=== PATIENT | female | born 2000 | race Caucasian/White ===

== ENCOUNTER 2021-12-24 22:55 | Emergency (ER) | payer OTHER ==
[~2021-12-24] VITALS: Ht 175.3 cm; Wt 106.6 kg
[2021-12-24] MEDS ORDERED: FUL-GLO OP ONE (23:02)
[2021-12-24] MEDS ORDERED: ERYTHROMYCIN ONE (23:09)
[2021-12-24 23:16] VITALS: BP 142/78
--- NOTE | 2021-12-24 23:24 | ER.PDOC ---
General Chief Complaint: Requesting Medical Care Stated Complaint: R EYE PAIN Time seen by MD: 22:58 Source: patient Exam Limitations: no limitations History of Present Illness Initial Comments This 21-year-old white female indicated that she had had eyelash extensions applied . She stated this morning around noon felt like possibly a piece of the glue from the eyelash extensions broke off and fell into her eye. She had this sudden foreign body sensation. She was seen in one of the freestanding ED's in [place] and they told her that they did not see anything they still gave her a prescription for an antibiotic ointment the name of which she does not know. However, by the time she got back home here to [place], the pharmacies were all closed and she could not fill the prescription. The eye was still irritating so she came in here. Fortunately we do have erythromycin ointment and I was able to instill some in her eye.He has no other acute complaints or injury. Timing/Duration: abrupt, other (About 11 to 12 hours) Associated Symptoms: pian, foreign body sensation Location: right eye Severity: moderate Context: foreign body (Possible piece of glue from her eyelash extension) Where: home Past Medical History Medical History: no pertinent history Surgical History: no surgical history Social History Smoking: non-smoker Alcohol Use: none Drug Use: none Constitutional: denies no symptoms reported, denies see HPI, denies chills, denies diaphoresis, denies fever, denies malaise, denies weakness, denies other Eyes: denies no symptoms reported; see HPI; denies blindness, denies blurred vision, denies drainage, denies decreased acuity; foreign body sensation; denies inflammation, denies pain, denies photophobia, denies previous injury, denies shadows, denies tunnel vision, denies vision change, denies contact lenses, denies glasses, denies other Ears: denies no symptoms reported, denies see HPI, denies dizziness, denies pain, denies tinnitus, denies bloody discharge, denies clear discharge, denies purulent discharge, denies serosanguinous discharge, denies previous injury, denies other Nose: denies no symptoms reported, denies see HPI, denies clots, denies congestion, denies epistaxis, denies pain, denies bloody discharge, denies clear discharge, denies purulent discharge, denies serosanguinous discharge, denies previous injury, denies other Mouth: denies no symptoms reported, denies see HPI, denies clots, denies loose teeth, denies pain, denies swelling, denies bloody discharge, denies clear discharge, denies purulent discharge, denies serosanguinous discharge, denies previous injury, denies other Throat: denies no symptoms reported, denies see HPI, denies pain, denies swelling, denies discharge, denies neck stiffness, denies aphonia, denies hoarse, denies muffled, denies painful swallowing, denies difficulty with fluids, denies previous injury, denies other Respiratory: denies no symptoms reported, denies see HPI, denies cough, denies orthopnea, denies shortness of breath, denies stridor, denies wheezing, denies other Cardiovascular: denies no symptoms reported, denies see HPI, denies chest pain, denies edema, denies palpitations, denies syncope, denies other Gastrointestinal: denies no symptoms reported, denies see HPI, denies abdominal pain, denies constipation, denies diarrhea, denies nausea, denies vomiting, denies other Musculoskeletal: denies no symptoms reported, denies see HPI, denies back pain, denies gout, denies joint pain, denies joint swelling, denies muscle pain, denies muscle stiffness, denies neck pain, denies other Skin: denies no symptoms reported, denies see HPI, denies change in color, denies change in hair/nails, denies dryness, denies lesions, denies lumps, denies rash, denies other Neurological: denies no symptoms reported, denies see HPI, denies anxiety, denies depressed, denies emotional problems, denies headache, denies numbness, denies paresthesia, denies pre-existing deficit, denies seizure, denies tingling , denies tremors, denies weakness, denies other Hematologic/Lymphatic: denies no symptoms reported, denies see HPI, denies anemia, denies blood clots, denies easy bleeding, denies easy bruising, denies swollen glands, denies other Immunological/Allergic: denies no symptoms reported, denies see HPI, denies food allergy, denies grass allergy, denies mold allergy, denies pollen allergy, denies HIV/AIDS, denies transplant All Other Systems: Reviewed and Negative Physical Exam General Appearance: alert, no distress Visual Acuity: no globe trauma Eyelid: nml inspection, (R) erythema, everted for exam (R) (No foreign body f ound in the anywhere.) Conjunctiva/Sclera: (R) injected (No fluorescein staining uptake anywhere) Corneas: nml inspection, exam w/flurescein (R) EOM's: intact, no nystagmus Pupils: PERRL, nml accommodation Head/ENT: nml inspection, pharynx nml Skin Exam: Normal Color, Warm/Dry Neck/Back: nml inspection, painless ROM Resp/CVS: no resp distress, lungs clear, heart sounds nml, reg. rate & rhythm Abdomen: non-tender, no organomegaly NEURO/PSYCH: oriented X3, mood/effect nml Results/Orders Results/Orders Orders - SANGEETA YUSUF MD Fluorescein Sodium (Ful-Moira) (12/24/21 23:02) Erythromycin Base (Erythromycin) (12/24/21 23:09) Erythromycin Base (Erythromycin) (12/24/21 23:30) ER DEPART Departure Time of Disposition: 23:23 Disposition: 01 HOME / SELF CARE / HOMELESS Impression: Primary Impression: Acute eye pain Condition: Stable Referrals: PCP,UNKNOWN (PCP) PRIMARY CARE PROVIDER Comments Erythromycin ophthalmic ointment 0.5% apply approximately a third of an inch to half inch up to 6 times a day up to 7 or 10 days if needed. However, advised patient follow-up in 2 to 3 days if not significantly improved. Duration or Time Spent with Pa: 15m SANGEETA YUSUF MD Dec 24, 2021 23:24
[2021-12-24] MEDS ORDERED: ERYTHROMYCIN RIGHT EYE ONE (23:30)
[2021-12-24 23:45] VITALS: BP 125/72
== END 2021-12-24 23:47 | disposition home or self-care (01) ==
LOC: ER 22:55
DX: H57.11 Ocular pain, right eye (principal)
CPT/HCPCS: 99283